=== PATIENT | female | born 1935 | race Caucasian/White ===

== ENCOUNTER 2019-05-29 08:42 | Day surgery (SDC) | payer OTHER, SELFPAY ==
[2019-05-28 18:30] VITALS: BMI 28.8
[2019-05-29 09:31] VITALS: BP 128/73; PULSE 59; RESP 16; TEMP 36.8; O2SAT 98
--- NOTE | 2019-05-29 09:55 | PM.IMHP ---
H&P: HPI History of Present Illness Chief complaint: [facility] Narrative: Nica Owens is a 84 year old female with an ischemic cardiomyopathy and ICD who is at [facility] and here for generator change. She had a generator change several years ago but Dr. Max. She does use her device for anti tachy pacing but has not had a defibrillation. She has history of PAF and her last dose of warfarin was Monday. She is feeling well with no fevers or shortness of breath and has been NPO. Review of Systems Constitutional: Constitutional: Reports no additional constitutional complaints ENT: Denies nasal congestion Cardiovascular: Cardiovascular: Denies chest pain, Denies pedal edema and Denies palpitations Respiratory: Respiratory: Denies chest congestion and Denies dyspnea Gastrointestinal: Gastrointestinal: Denies abdominal pain Genitourinary: Genitourinary: Denies dysuria Musculoskeletal: Musculoskeletal: Reports arthralgias Integumentary/Breasts: Skin/Breast: Denies rash Neurologic: Reports system reviewed and no additional complaints, except as documented Psychiatric: Psychiatric: Reports no additional psychiatric complaints [facility] Past Medical History Medical History Afib 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 chronic kidney disease HLD (hyperlipidemia) Hypothyroidism (acquired) Family History Family History Father Patient's father is , Onset Age: 88 Mother Acute myocardial infarction, Onset Age: 79 Sibling Family history of Alzheimer's disease Social History Social History Smoking status: Never smoker Alcohol intake: never Gender identity (if verbalized by the patient): Female Meds Home Medications and Allergies Home Medications Medication Instructions Recorded Confirmed Type bupropion HCl 150 mg PO QAM 12/14/18 05/28/19 History folic acid 1 mg PO DAILY 12/14/18 05/28/19 History levothyroxine 75 mcg PO DAILY 12/14/18 05/28/19 History simvastatin 40 mg PO DAILY 12/14/18 05/28/19 History spironolactone 25 mg PO DAILY 12/14/18 05/28/19 History aspirin 81 mg tablet,delayed 81 mg PO DAILY 01/15/19 05/28/19 History release cetirizine 10 mg tablet 10 mg PO DAILY PRN 01/15/19 05/28/19 History cholecalciferol (vitamin D3) 25 1,000 unit PO DAILY 01/15/19 05/28/19 History mcg (1,000 unit) capsule nitroglycerin 0.4 mg sublingual 0.4 mg SUBLINGUAL Q5M PRN #30 01/16/19 05/28/19 Rx tablet tablet furosemide 20 mg tablet 20 mg PO DAILY #30 tablet 04/02/19 05/28/19 Rx alendronate 70 mg tablet See Rx Instructions .ROUTE 05/07/19 05/28/19 Rx .COMPLEX #12 tablet nitrofurantoin macrocrystal 50 mg See Rx Instructions .ROUTE 05/14/19 05/28/19 Rx capsule .COMPLEX #30 cap tramadol 50 mg tablet 50 mg PO Q6H PRN #60 tablet 05/16/19 05/28/19 Rx alprazolam 0.5 mg PO TID PRN 05/28/19 05/28/19 History carvedilol 3.125 mg PO BID 05/28/19 05/28/19 History d-mannose 500 PO DAILY 05/28/19 History ferrous sulfate 65 mg PO DAILY 05/28/19 05/28/19 History leflunomide 10 mg PO DAILY 05/28/19 05/28/19 History prednisone 2.5 mg PO BID 05/28/19 05/28/19 History warfarin 3 mg PO DAILY 05/28/19 05/28/19 History Allergies Allergy/AdvReac Type Severity Reaction Status Date / Time diclofenac Allergy Mild Other Verified 05/28/19 18:49 acetaminophen AdvReac Severe LIMITS Verified 05/28/19 18:49 ACETAMINOPHEN- LIVER PROBLEMS GB TEST SOLUTION? Allergy Severe SEVERE Uncoded 05/28/19 18:49 SWELLING Vital Signs Vital Signs - 24 hr 05/29/19 09:31 Temperature 98.3 F Pulse Rate 59 L Respiratory Rate 16 Blood Pressure 128/73 Pulse Oximetry 98 Exam Const: General: comfortable and no acute distress Other: Accompanied by son, Murray. HENMT: Mouth: Yes moist mucous membranes (Dentition in good repair) Eyes: EOM: EOMs intact
--- NOTE | 2019-05-29 10:01 | WPDMODSED ---
Moderate Sedation Note-Pt Data Patient Data Diagnosis: ICD at [facility] Present Complaint: ICD at [facility] Ischemic cardiomyopathy ventricular tachycardia PAF Procedure to be performed/Plan: Conscious sedation generator change Allergies Allergy/AdvReac Type Severity Reaction Status Date / Time diclofenac Allergy Mild Other Verified 05/28/19 18:49 acetaminophen AdvReac Severe LIMITS Verified 05/28/19 18:49 ACETAMINOPHEN- LIVER PROBLEMS GB TEST SOLUTION? Allergy Severe SEVERE Uncoded 05/28/19 18:49 SWELLING Home Medications Medication Instructions Recorded Confirmed Type bupropion HCl 150 mg PO QAM 12/14/18 05/28/19 History folic acid 1 mg PO DAILY 12/14/18 05/28/19 History levothyroxine 75 mcg PO DAILY 12/14/18 05/28/19 History simvastatin 40 mg PO DAILY 12/14/18 05/28/19 History spironolactone 25 mg PO DAILY 12/14/18 05/28/19 History aspirin 81 mg tablet,delayed 81 mg PO DAILY 01/15/19 05/28/19 History release cetirizine 10 mg tablet 10 mg PO DAILY PRN 01/15/19 05/28/19 History cholecalciferol (vitamin D3) 25 1,000 unit PO DAILY 01/15/19 05/28/19 History mcg (1,000 unit) capsule nitroglycerin 0.4 mg sublingual 0.4 mg SUBLINGUAL Q5M PRN #30 01/16/19 05/28/19 Rx tablet tablet furosemide 20 mg tablet 20 mg PO DAILY #30 tablet 04/02/19 05/28/19 Rx alendronate 70 mg tablet See Rx Instructions .ROUTE 05/07/19 05/28/19 Rx .COMPLEX #12 tablet nitrofurantoin macrocrystal 50 mg See Rx Instructions .ROUTE 05/14/19 05/28/19 Rx capsule .COMPLEX #30 cap tramadol 50 mg tablet 50 mg PO Q6H PRN #60 tablet 05/16/19 05/28/19 Rx alprazolam 0.5 mg PO TID PRN 05/28/19 05/28/19 History carvedilol 3.125 mg PO BID 05/28/19 05/28/19 History d-mannose 500 PO DAILY 05/28/19 History ferrous sulfate 65 mg PO DAILY 05/28/19 05/28/19 History leflunomide 10 mg PO DAILY 05/28/19 05/28/19 History prednisone 2.5 mg PO BID 05/28/19 05/28/19 History warfarin 3 mg PO DAILY 05/28/19 05/28/19 History Sedation/Anesthesia: No previous sedation/anesthesia problems (including family history). 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 chronic kidney disease HLD (hyperlipidemia) Hypothyroidism (acquired) ICD (implantable cardioverter-defibrillator) battery depletion Ischemic cardiomyopathy Paroxysmal atrial fibrillation Ventricular tachycardia Family History Family History Father Patient's father is , Onset Age: 88 Mother Acute myocardial infarction, Onset Age: 79 Sibling Family history of Alzheimer's disease Social History Social History Smoking status: Never smoker Alcohol intake: never Gender identity (if verbalized by the patient): Female Mod Sed Physical Exam Physical Exam Pre Procedural Exam: Normal: Appearance, Eyes, Ears, Nose, Neck, Throat, Airway, Lungs, Heart Size, Heart Rate, Heart Rhythm, Neuro Exam, Abdomen, Kidneys, Extremities and Skin (ICD site is well healed) Hours since solid foods: 12 Hours since liquid intake: 12 Internal Medicine - PN: Obj Da Vital Signs Vital Signs: Vital Signs - 24 hr 05/29/19 09:31 Temperature 98.3 F Pulse Rate 59 L Respiratory Rate 16 Blood Pressure 128/73 Pulse Oximetry 98 Labs Labs: Lab stent yesterday, INR 1 1 ASA Classification/Sedation ASA Classification/Sedation ASA Class: III Risks: Risks, benefits and alternatives explained and patient/family accepted plan for sedation. Patient re-evaluated immediately prior to sedation.
--- NOTE | 2019-05-29 11:19 | PM.PROC ---
Procedure Note - Detailed Date of procedure: 05/29/19 Pre-op diagnosis: [facility] ICD at [facility] Post-op diagnosis: same Description of procedure: PROCEDURE: Concious sedation Generator change UNDERLYING RHYTHM: NSR CONSCIOUS SEDATION: Assessment: The patient has no history of anesthesia problems. The oropharynx is clear. The patient was deemed to be a good candidate for conscious sedation. The patient had continuous hemodynamic and oximetric monitoring during the procedure. Start time: 1028 Completion time: 11 12 Total conscious sedation time: 44 minutes Medications: Versed 2 mg, fentanyl 75 mcg IV push Trained observer: Outcome: The patient tolerated the procedure well with no complications. PROCEDURE: After informed consent, the patient is brought to the offset label rewinder and the left prepectoral area was prepped and draped in usual fashion. The patient was given a prophylactic antibiotic with Ancef 1 gm intravenously. After conscious sedation as described above, the area was anesthetized with 1% lidocaine. A skin incision is made with the Plasma Blade and carried down to the pacing capsule which was also incised. Hemostasis is obtained using the Plasma Blade. The lead/s was/were freed from the underlying capsule and the pulse generator was delivered from the pocket. The lead/s was/were disconnected from the existing device and reconnected to the new device. A gentle tug could not remove it/them. The device and lead/s was/were interrogated and found to be functioning appropriately. The area was copiously irrigated with antibiotic-containing solution. The device was replaced in the pocket. The subcutaneous tissues were closed in a two-layer fashion with interrupted 2 0 Vicryl sutures and the skin was closed in a continuous fashion using 4 0 Vicryl. The area was cleansed, an Aquacel dressing applied. The patient tolerated the procedure well with no complications. Estimated blood loss was negligible. Defibrillation threshold testing not performed DEVICE INFORMATION: Pulse generator: [employer] Dynagen EL ICD IS-1/DR-1-DR, Model # D153, Serial # [id number] RA lead: Guidant model 4469, Serial # [id number] RV lead: Guidant model 0184, Serial # [id number] Explanted generator: [employer] Model E163, Serial # [id number] THRESHOLD INFORMATION: RA lead: P-wave sensing 2.3 mV, threshold 0.7 volts at 0.4 milliseconds, impedance 439 RV lead: And R-wave sensing 24.5 mV, threshold 1 volt at 0.4 milliseconds, impedance 503 Ohms, shock impedance 47 Ohms PROGRAMMED PARAMETERS: DDD 50-120 V-tach zone: 150 beats per minute, monitor only V-tach zone 175 be p.m., ATP x4 then 41 joules x6 VFib zone: 220 be p.m., quick convert then 41 joules x8 Anesthesia: local ( with conscious sedation) Surgeon: Daja Marte MD Estimated blood loss (mL): 5 Drains: No Packing: No Pathology: none sent Complications: No immediate complications Condition: stable Disposition: same day Findings: Interrogation of the device shows the patient is using the anti tachy pacing function, with 6 successful ATP episodes on March 20, 2019. Will resume warfarin on Monday.
[2019-05-29 11:30] VITALS: BP 138/89; PULSE 60; RESP 18; TEMP 37; O2SAT 97
[2019-05-29 11:45] VITALS: BP 128/72; PULSE 60; RESP 16; O2SAT 95
[2019-05-29 12:00] VITALS: BP 125/69; PULSE 58; RESP 18; O2SAT 96
[2019-05-29 12:15] VITALS: BP 122/70; PULSE 59; RESP 16; O2SAT 94
[2019-05-29 12:30] VITALS: BP 130/73; PULSE 62; RESP 20; O2SAT 96
--- NOTE | 2019-05-29 12:33 | SUR.PHASEII ---
1230-pt given D/C orders and instructions. Questions answered and verbalized understanding. AOx4. Dressing shows no evidence of bleeding or hematoma. Taken via wheelchair to waiting vehicle. No distress noted or verbalized at time of departure.
== END 2019-05-29 12:26 | disposition home or self-care (01) ==
PROVIDERS: PCP Emergency Medicine; Visit Provider Internal Medicine Cardiovascular Disease
PROC: 0JPT0PZ Removal of Cardiac Rhythm Related Device from Trunk Subcutaneous Tissue and Fascia, Open Approach (ICD-10-PCS; CPT 33249; principal; 2019-05-29 10:00)
DX: Z45.02 Encounter for adjustment and management of automatic implantable cardiac defibrillator (principal); I25.5 Ischemic cardiomyopathy; I47.2 Ventricular tachycardia; I48.0 Paroxysmal atrial fibrillation; I12.9 Hypertensive chronic kidney disease with stage 1 through stage 4 chronic kidney disease, or unspecified chronic kidney disease; N18.3 Chronic kidney disease, stage 3 (moderate); D63.1 Anemia in chronic kidney disease; E78.5 Hyperlipidemia, unspecified; E03.9 Hypothyroidism, unspecified; Z79.01 Long term (current) use of anticoagulants; Z79.82 Long term (current) use of aspirin
CPT/HCPCS: 33263; C1721; A9270; J0690; J2250; J3010; J7040

== ENCOUNTER 2019-06-13 13:40 | Outpatient (CLI) | payer OTHER, SELFPAY ==
--- NOTE | ~2019-06-13 | XR_ITS ---
EXAMINATION: XR knee RT 2V DATE: 06/13/2019 14:19 INDICATION: Right knee pain. TECHNIQUE: 3 views of right knee were obtained. COMPARISON: Right knee radiographs 02/02/2009 FINDINGS: Bone alignment is normal. No fracture. There is mild osteoarthritis of medial and patellofe moral compartments and moderate osteoarthritis of lateral compartment. No knee joint effusion. IMPRESSION: 1. Moderate right knee osteoarthritis. Reviewed, dictated and finalized at location A.
--- NOTE | ~2019-06-13 | XR_ITS ---
EXAMINATION: XR hip RT 2V w AP pelvis DATE: 06/13/2019 14:19 INDICATION: Right hip pain. TECHNIQUE: An anteroposterior view of the pelvis and 2 views of right hip were obtained. COMPARISON: Right hip radiographs 02/02/2009, CT abdomen and pelvis 10/29/2015 FINDINGS: There are bilateral total hip arthroplasties in near-anatomic alignment. No periprosthetic lucency to suggest loosening or infection. No fracture. Osteitis pubis is noted. There is lumbar levo scoliosis and severe spondylosis. IMPRESSION: 1. Bilateral total hip arthroplasties in near-anatomic alignment. Reviewed, dictated and finalized at location A.
== END 2019-06-13 13:41 | disposition home or self-care (01) ==
PROVIDERS: PCP Emergency Medicine; Visit Provider Emergency Medicine
DX: R52 Pain, unspecified (principal); M17.11 Unilateral primary osteoarthritis, right knee
CPT/HCPCS: 73502; 73560